=== PATIENT | female | born 1975 | race Caucasian/White ===

== ENCOUNTER 2017-03-01 14:44 | Emergency (ER) | payer MEDICARE, MEDICAID ==
--- NOTE | 2017-03-01 14:56 | UC ---
Ear Complaint HPI - HPI Summary HPI Summary: left ear pain has been on antibiotics for ear infection now has left ear pain that is sharp and is radiating in to throat - History of Current Complaint Chief Complaint: UCEar Stated Complaint: LEFT EAR PAIN Time Seen by Provider: 03/01/17 14:47 Hx Obtained From: Patient ?: No Onset/Duration: Gradual Onset, Lasting Days, Worse Since - past 2 days Severity Initially: Mild Severity Currently: Moderate Pain Intensity: 7 Pain Scale Used: 0-10 Numeric Aggravating Factors: Nothing Alleviating Factors: Nothing - Allergies/Home Medications Allergies/Adverse Reactions: Allergies Allergy/AdvReac Type Severity Reaction Status Date / Time Cefdinir [From Omnicef] Allergy Unknown Verified 03/01/17 15:04 Reaction Details CI Pigment Blue 63 Allergy See Comment Verified 03/01/17 15:04 [From Cymbalta] Duloxetine [From Cymbalta] Allergy See Comment Verified 03/01/17 15:04 Sodium Benzoate Allergy Unknown Verified 03/01/17 15:04 [From Omnicef] Reaction Details Telithromycin [From Ketek] Allergy See Comment Verified 03/01/17 15:04 Home Medications: Home Medications Alprazolam [Xanax] 1 mg PO DAILY 03/01/17 [History Confirmed 03/01/17] Amoxicillin PO (*) [Amoxicillin 500 MG CAP*] 1,000 mg PO BID 03/01/17 [History Confirmed 03/01/17] Cyclobenzaprine TAB* [Flexeril 10 MG TAB*] 10 mg PO TID PRN 03/01/17 [History Confirmed 03/01/17] Esomeprazole Magnesium [Nexium 24Hr] 40 mg PO DAILY 03/01/17 [History Confirmed 03/01/17] FLUoxetine CAP* [PROzac CAP*] 80 mg PO DAILY 03/01/17 [History Confirmed ] Ibuprofen TAB* [Motrin TAB* 800 MG] 800 mg PO DAILY 03/01/17 [History Confirmed 03/01/17] Oxybutynin TAB* [Ditropan TAB*] 5 mg PO DAILY 03/01/17 [History Confirmed ] QUEtiapine TAB* [SEROquel TAB*] 200 mg PO BEDTIME 03/01/17 [History Confirmed ] oxyCODONE TAB* [Roxycodone TAB 5 mg*] 40 - 60 mg PO TID 03/01/17 [History Confirmed 03/01/17] PMH/Surg Hx/FS Hx/Imm Hx Previously Healthy: No GI/ History: Gastroesophageal Reflux Psychological History: Anxiety, Depression, Other - Fibromyalgia Other Psychological History: fibromyalgia - Family History Known Family History: Positive: None - Social History Occupation: Disabled Lives: With Family Alcohol Use: None Substance Use Type: None Review of Systems Constitutional: Negative Skin: Negative Eyes: Negative ENT: Sore Throat, Ear Ache - left Respiratory: Negative Cardiovascular: Negative Gastrointestinal: Negative Genitourinary: Negative Motor: Negative Neurovascular: Negative Musculoskeletal: Negative Neurological: Negative Psychological: Negative All Other Systems Reviewed And Are Negative: Yes Physical Exam Triage Information Reviewed: Yes Appearance: Well-Appearing, No Pain Distress, Well-Nourished Vital Signs Reviewed: Yes Eye Exam: Normal Eyes: Positive: Conjunctiva Clear ENT Exam: Normal ENT: Positive: Normal ENT inspection, Hearing grossly normal, Pharynx normal, TMs normal. Negative: Nasal congestion, Nasal drainage, Trismus, Muffled/ hoarse voice Dental Exam: Normal Neck exam: Normal Neck: Positive: Supple, Nontender, No Lymphadenopathy Respiratory Exam: Normal Respiratory: Positive: Chest non-tender, Lungs clear, Normal breath sounds, No respiratory distress, No accessory muscle use Cardiovascular Exam: Normal Cardiovascular: Positive: RRR, No Murmur, Pulses Normal, Brisk Capillary Refill Musculoskeletal Exam: Normal Musculoskeletal: Positive: Strength Intact, ROM Intact, No Edema Neurological Exam: Normal Neurological: Positive: Alert, Muscle Tone Normal Psychological Exam: Normal Skin Exam: Normal Ear Complaint Course/Dx - Course Course Of Treatment: add sudafed to treatment paln, finish amoxicillin, increase fluids, follow with pcp or return for worsening pain or symptoms - Differential Dx/Diagnosis Differential Diagnosis/HQI/PQRI: Otitis Externa, Otitis Media, URI, Other - eustation tube dysfunction Provider Diagnoses: (L) eustation tube dysfunction Discharge - Discharge Plan Condition: Stable Disposition: HOME Patient Education Materials: Serous Otitis Media (ED), Pseudoephedrine (By mouth), Warm Compress or Soak (ED) Referrals: Eder Worrell MD [Primary Care Provider] - Additional Instructions: follow with your primary care provider or return as needed
[2017-03-01 14:58] VITALS: BP 121/82
== END 2017-03-01 15:20 | disposition home or self-care (01) ==
LOC: UCCORT 14:44
DX: H69.92 Unspecified Eustachian tube disorder, left ear (principal); Z88.3 Allergy status to other anti-infective agents; K21.9 Gastro-esophageal reflux disease without esophagitis; F41.9 Anxiety disorder, unspecified; F32.9 Major depressive disorder, single episode, unspecified; M79.7 Fibromyalgia
CPT/HCPCS: 99202; G0463